=== PATIENT | male | born 1940 | race African-American/Black ===

== ENCOUNTER 2021-01-08 17:40 | Emergency (ER) | payer MEDICARE, MEDICAID, OTHER | END 2021-01-08 21:06 | LOC: NAV ERS 17:40 | DX: S20.212A Contusion of left front wall of thorax, initial encounter (principal); M25.562 Pain in left knee; K21.9 Gastro-esophageal reflux disease without esophagitis; D64.9 Anemia, unspecified; E78.5 Hyperlipidemia, unspecified; I11.0 Hypertensive heart disease with heart failure; I50.9 Heart failure, unspecified; E11.9 Type 2 diabetes mellitus without complications; J44.9 Chronic obstructive pulmonary disease, unspecified; G47.00 Insomnia, unspecified; K74.69 Other cirrhosis of liver; Z86.73 Personal history of transient ischemic attack (TIA), and cerebral infarction without residual deficits; Z79.82 Long term (current) use of aspirin; Z79.899 Other long term (current) drug therapy; W18.11XA Fall from or off toilet without subsequent striking against object, initial encounter; Y92.002 Bathroom of unspecified non-institutional (private) residence as the place of occurrence of the external cause; Y93.E1 Activity, personal bathing and showering ==

== ENCOUNTER 2021-12-06 12:07 | Outpatient (CLI) | payer MEDICARE, OTHER | END 2021-12-06 12:08 | disposition home or self-care (01) | LOC: NAV CT 12:07 | PROVIDERS: ATTEND Internal Medicine | DX: R93.7 Abnormal findings on diagnostic imaging of other parts of musculoskeletal system (principal) | CPT/HCPCS: 70450 ==